=== PATIENT | male | born 1960 | race Caucasian/White ===

== ENCOUNTER 2016-09-26 11:54 | Inpatient (IN) | payer OTHER ==
[~2016-09-26] VITALS: Ht 190.5 cm; Wt 106.6 kg
--- NOTE | ~2016-09-26 | DS ---
PATIENT'S NAME: AMAN HOLCOMB [facility] AGE: 55 Y [address] ROOM: G3214 [place], [place] [address] LOCATION: [facility] ADMIT DATE: 09/26/2016 Discharge Summary DISCHARGE DATE: 09/29/2016 FAMILY PHYSICIAN: Thaddeus Valdes MD ATTENDING PHYSICIAN: Josue Laurent V ATTENDING PHYSICIAN ON THE DAY OF DISCHARGE: Dr. Du. DISCHARGE DIAGNOSES: 1. Intracranial hemorrhage, multiple. 2. Status post mechanical fall. 3. The patient is on long-term anticoagulation. 4. The patient is now hospice candidate. 5. History of alcohol dependence. DISCHARGE MEDICATIONS: 1. Tylenol 650 mg suppository q.4 h. p.r.n. for pain or fever over 100. 2. Atropine 1% ophthalmic drops 1 or 2 drops sublingually every 4 hours p.r.n. respiratory secretions. 3. Morphine sulfate 20 mg/mL 2.5-5 mg p.o. every hour p.r.n. pain or dyspnea. 4. Lorazepam suspension 0.5-2 mg p.o. sublingually q.2 h. p.r.n. anxiety. HOSPITAL COURSE: Please refer to the admitting H and P dictated by Dr. Laurent for more detailed outline of this patient's presentation. The patient was admitted and placed in the ICU. The family did not want aggressive treatment and Neurology was consulted for brain determination. A CT of the head was obtained on 09/27/2016, which showed extensive intracranial hemorrhage, which appears slightly more prominent involving the subarachnoid blood and scattered small areas of parenchymal hemorrhage. There was mass effect with midline shift to the left and effacement of the cortical sulci adjacent to the large left temporoparietal bleed. It was felt that the patient would have significant disability. The patient did show purposeful movement when Neurology consulted; however, given the dense disability that would remain, the patient's family ultimately decided on comfort cares after a family meeting on 09/27/2016. The patient underwent compassionate extubation on 09/27/2016 and was ultimately transferred to Medical/Surgical Unit to continue with comfort cares. It was the family's wishes to have the patient brought home with the help of hospice. Palliative Care was on-board with this case and also visited with the patient's sister who was passionate about the patient being discharged home. Arrangements were ultimately made for the patient to discharge home and come on Hospice Services on 09/29/2016. Ambulance transfer was requested and made and Hospice consult placed. Plans are for the hospice intake to happen on 09/29/2016 and comfort orders PATIENT'S NAME: AMAN HOLCOMB [facility] AGE: 55 Y [address] ROOM: [place] [address] LOCATION: [facility] ADMIT DATE: 09/26/2016 Discharge Summary DISCHARGE DATE: 09/29/2016 FAMILY PHYSICIAN: Thaddeus Valdes MD ATTENDING PHYSICIAN: Josue Laurent V were filled out and sent with the patient. This discharge took greater than 35 minutes and involved visiting with family particularly the patient's sister, coordinating with Palliative Care, and along with Hospice Services in the [facility], attempting to contact his primary care physician, and filling out appropriate paperwork for the ambulance transfer, hospice certification, and order set. MATI ESCOBEDO PA-C FOR MD OTILIO NAVARRO/modl /[id number] CC: Thaddeus Valdes MD d: 09/30/16 0208 t: 10/02/16 1822, DISCHARGE SUMMARY
--- NOTE | ~2016-09-26 | ER ---
PATIENT'S NAME: AMAN HOLCOMB [facility] AGE: 55 Y [address] ROOM: [address] [address] LOCATION: GICU ADMIT DATE: 09/26/2016 ER/Outpatient Report DISCHARGE DATE: FAMILY PHYSICIAN: Thaddeus Valdes MD ATTENDING PHYSICIAN: RUBY HER V Time of Arrival: 1154 hours. Time of Exam: 1200 hours. CHIEF COMPLAINT: Unresponsive. HISTORY OF PRESENT ILLNESS: The patient was transferred here from [facility]. He fell down a flight of steps and was found unresponsive at the bottom of the steps. He was evaluated at [facility], found to have multiple intraparenchymal, subdural, and subarachnoid hemorrhage of the left temporal lobe. He had right- sided scalp and periorbital hematomas. He was intubated there, transferred here for the care of Dr. Delacruz. They also did a CT of his cervical spine. It showed no acute spinal trauma injury. Lab work is available on his chart. Dr. Delacruz had talked with the sister, Taty Hernandez, regarding the patient prior to his arrival and the family did not necessarily want surgery done and felt that was his wishes. So, a plan of care was to admit the patient for comfort cares. ALLERGIES: NO KNOWN ALLERGIES. HOME MEDICATIONS: On his chart and were reviewed by me. PAST MEDICAL HISTORY: Includes coronary artery disease, hypertension, atrial fib, osteoarthritis, alcohol abuse. PAST SURGICAL HISTORY: He did have an ablation done for the atrial fibrillation. SOCIAL HISTORY: The patient lives in [place]. He does drink on a daily basis. REVIEW OF SYSTEMS: Difficult to evaluate at this time as the patient is intubated and unable to answer questions. PATIENT'S NAME: AMAN HOLCOMB [facility] AGE: 55 Y [address] ROOM: [address] [address] LOCATION: GICU ADMIT DATE: 09/26/2016 ER/Outpatient Report DISCHARGE DATE: FAMILY PHYSICIAN: Thaddeus Valdes MD ATTENDING PHYSICIAN: RUBY HER V PHYSICAL EXAMINATION: VITAL SIGNS: Weight 113.9 kg. Blood pressure is 118/81, pulse of 97, respirations 16 on the ventilator, temp of 98.1, O2 saturations 100% per ventilated settings. [place] Coma Scale was 3. GENERAL: The patient does not respond to verbal commands, does not over breathe the ventilator. HEENT: Pupils are constricted and nonreactive. LUNGS: Lung sounds are decreased in the bases, but clear throughout. HEART: Regular rate and rhythm. He does have bruising and swelling of the right periorbital area. Bruising of right elbow noted. No other obvious deformity noted. EMERGENCY DEPARTMENT COURSE: The patient has bilateral intraosseous IVs in place with normal saline running at a TKO rate with those. Family is here. Dr. Delacruz did come and see the patient and talked with the family regarding the plan of care. They were introduced to Dr. Her, who will be caring for the patient in the hospital. Marcy with [facility] [employer] is here and did talk with the family. X-ray of right elbow completed. No bony abnormaility noted. Patient reviewed with Dr. Rizvi. During time in ER, patient started over breathing the vent and having purposeful movement with left hand. Dr. Her was here in the ER and is aware of change. Dr. Delacruz notified of patient's change. Patient was given versed and fentanyl. Patient will be admitted to the ICU. IMPRESSION: Intracranial bleed due to a fall. PLAN: The patient to be admitted per the hospitalist, who will follow his care. MILTON PEREZ APRN FOR DO SHAHBAZ ARRIOLA/gita /[id number] d: 09/26/161920 t: 10/04/1603, OUTPATIENT REPORT
--- NOTE | ~2016-09-26 | CON ---
PATIENT'S NAME: AMAN REYNOSO [facility] AGE: 55 Y [address] ROOM: G[address]14 [place], [place] [address] LOCATION: [facility] [place] ADMIT DATE: 09/26/2016 Consultation DISCHARGE DATE: 09/29/2016 FAMILY PHYSICIAN: Thaddeus Valdes MD ATTENDING PHYSICIAN: Josue Laurent V DATE OF CONSULTATION: 09/29/2016 LOCATION: [facility] [place] [address]14. REASON FOR CONSULTATION: This is a palliative care referral for goals of care and assistance with getting home on hospice. HISTORY OF PRESENT ILLNESS: This is a 55-year-old male, who was found unresponsive by paramedics at the bottom of the stairs. He had not been seen for a couple of days and was found. He was taken to the hospital in [place]. He has a known history of atrial fibrillation, was on Pradaxa. CT of the head showed multiple intracerebral hemorrhages. He was transferred to [facility] for services by the neurosurgeon, Dr. Delacruz. The patient's family, his sister, Taty Reynoso, was contacted and had expressed that he had told them after being in the hospital last time, he did not want extraordinary measures done, and she has decided to follow his wishes, and he was extubated, and he is now on comfort cares. He also has a known history of alcoholism and other medical problems per his power of research attorney. Currently, the patient is somewhat restless, unresponsive, has irregular breathing. No grimacing or moaning noted. Seems to calm down when he hears his sister's voice. She thinks he recognizes her voice. The patient is currently on comfort cares. PAST MEDICAL HISTORY: Atrial fibrillation, on Pradaxa, and alcoholism. CURRENT MEDICATIONS: 1. Acetaminophen 650 mg every 4 hours per rectum and p.o. 2. Morphine 2 mg every hour p.r.n. pain or dyspnea. 3. IV glycopyrrolate 0.2 to 0.4 every 2 hours p.r.n. increased respiratory secretions. 4. Morphine sulfate/Roxanol 2 to 5 mg every 10 minutes IV push. 5. Midazolam 2 to 4 mg every 10 minutes IV. 6. Haloperidol 1 mg every hour IV or subcu. 7. Hyoscyamine 0.125 mg every 4 hours sublingual p.r.n. increased respiratory secretions. 8. Tylenol 1000 mg every 4 hours p.r.n. pain or temperature. PATIENT'S NAME: AMAN REYNOSO [facility] AGE: 55 Y [address] ROOM: G[address]14 [place], [place] [address] LOCATION: [facility] [place] ADMIT DATE: 09/26/2016 Consultation DISCHARGE DATE: 09/29/2016 FAMILY PHYSICIAN: Thaddeus Valdes MD ATTENDING PHYSICIAN: Josue Laurent V ALLERGIES: NO KNOWN ALLERGIES. FAMILY HISTORY: Mother had heart disease, of stroke at the age of 79. Father had renal cancer with mets to lung and at the age of 83. Siblings have no medical problems. He has one other sister, who lives in [place]. PAST SURGICAL HISTORY: Tonsillectomy; bilateral total knees; bilateral knee scopes; history of cardioversions; cardiac ablation on 06/2016, done in [place]; history of pinched nerve for 11 years, history of addiction, alcohol abuse, and depression. SOCIAL HISTORY: He had been living alone, not , was a disabled . Alcohol, history of abuse. Smoking history, chews tobacco 1 can every other day x30 years. REVIEW OF SYSTEMS: A 10-point review of systems is done and is negative except as mentioned in the HPI. PHYSICAL EXAMINATION: GENERAL: This is a 55-year-old male, in no acute distress. VITAL SIGNS: Temperature 98.1, pulse 94, respirations 24, blood pressure 158/111. He is 6 feet 3 inches, weighs 235 pounds with BMI of 29.7. GENERAL: Unresponsive. Does not respond to verbal stimuli. SKIN: Warm and dry. Color pale. Right eye is ecchymotic. HEENT: Head: Normocephalic, atraumatic. Right eye is swollen. Sclerae are nonicteric. Mouth is pink and dry. LYMPH: No cervical adenopathy or thyromegaly. RESPIRATORY: Coarse bilaterally breath sounds, irregular Eliseo-Arce at times, and then goes back to being regular. CARDIAC: S1 and S2 without murmurs or bruits. No lower extremity edema. ABDOMEN: Soft, nontender. Positive bowel tones. No hepatosplenomegaly. Unknown last bowel movement. NEURO: Unresponsive, not following commands. MUSCULOSKELETAL: Does move left arm to head at times. Right side is flaccid. Palliative performance scale is 10%, totally bed-bound, unable do any activity, total care, mouth care only, in coma. IMPRESSION: Dyspnea, restlessness, and increased respiratory secretions. PATIENT'S NAME: AMAN REYNOSO [facility] AGE: 55 Y [address] ROOM: [place] [address] LOCATION: [facility] [place] ADMIT DATE: 09/26/2016 Consultation DISCHARGE DATE: 09/29/2016 FAMILY PHYSICIAN: Thaddeus Valdes MD ATTENDING PHYSICIAN: Josue Laurent V PLAN: Met with sister, Taty. Discussed goals of care. She states that he has told her after last admission that he does not want life prolonging treatments. She knows with him lying on the floor for couple of days that outcome would not be good, and she wants to follow his wishes. She states that she also knows that he would want to be home at home with his dog, and she would like to get him home as soon as possible and have hospice from [place] help her. She can be the caregiver, and he has a girlfriend, who will help care giving tasks. CODE STATUS AND ADVANCED DIRECTIVES: The patient is currently do not resuscitate/do not intubate. No copy of advance directive is in place. Sister states she is the medical power of research attorney. GOALS: 1. To get the patient home as soon as possible. 2. Have patient as comfortable as possible especially for transport. 3. To get [facility] to help when transferred back home. 4. Did discuss that transfer would probably have to be by ambulance. Notified Martha from Care Management. She will arrange for transfer by ambulance. Also talked with NELA Andrade, for hospitalist services on the patient's family's wishes to get patient back home with hospice. Notified [facility]. They can accept patient anytime. We will continue to assist with the patient and family. RECOMMENDATIONS: 1. For restlessness, give a dose of morphine now. 2. Increased respiratory secretions, was giving atropine, recommended and given Levsin or Robinul for secretions every 4 hours until secretions are better controlled. Total time was 65 minutes for counseling and coordination of care. Thank you for allowing me to assist this patient and family. LETA QIU NP FOR MD CONNIE TONG/gita /[id number] d: 09/29/162107 t: 09/30/16 1453, CONSULTATION REPORT
--- NOTE | ~2016-09-26 | HP ---
PATIENT'S NAME: AMAN HOLCOMB [facility] AGE: 55 Y [address] ROOM: [place] [address] LOCATION: [facility] ADMIT DATE: 09/26/2016 History & Physical DISCHARGE DATE: FAMILY PHYSICIAN: Thaddeus Valdes MD ATTENDING PHYSICIAN: RUBY HER V DATE OF SERVICE: HISTORY OF PRESENT ILLNESS: This is a 55-year-old male who was found unresponsive by paramedics at the bottom of the stairs. The patient was intubated and transported to an outside hospital. He has a past medical history of atrial fibrillation, on Pradaxa amongst other past medical history further characterized below. The workup at the outside facility showed multiple intracerebral hemorrhages. The patient was accepted by Dr. Delacruz to [facility]. However, before the patient even got here as was conveyed to me, the patient's family had a conversation with Dr. Delacruz in which they expressed that they would not want any measures outside of comfort done for the patient. As such, the patient was transported to the emergency room at [facility] for an elective extubation and comfort measures. Upon getting there, I had a discussion with the family. The family told me that the patient has been having ongoing problems with alcoholism, other medical problems, and has been declining. He has made it clear to them that he would not want any period of dependence on others with diminished quality of life under any medical conditions. As such, they elected to make him comfort care based on the severity of his intracerebral injuries. Roque was called and we were initiating conversation about the donation process. However, at some point, the patient was noted to be somewhat purposeful and was overbreathing the vent. At this point, the family told me that "now we are not sure what we are doing" and extubation was canceled. At this point, the patient has been transferred to the intensive care unit on a ventilator. REVIEW OF SYSTEMS: Cannot be obtained as the patient is intubated and sedated. PAST MEDICAL HISTORY: As provided by the family significant for atrial fibrillation, on Pradaxa and alcoholism. CURRENT MEDICATIONS: Include, PATIENT'S NAME: AMAN HOLCOMB [facility] AGE: 55 Y [address] ROOM: [place] [address] LOCATION: [facility] ADMIT DATE: 09/26/2016 History & Physical DISCHARGE DATE: FAMILY PHYSICIAN: Thaddeus Valdes MD ATTENDING PHYSICIAN: RUBY HER V 1. Pradaxa. 2. Atorvastatin. 3. Indomethacin. 4. Lisinopril. 5. Pantoprazole. 6. Sildenafil. 7. Sotalol. SURGICAL HISTORY: Unknown due to altered mental status. SOCIAL HISTORY: Significant for ongoing alcohol abuse as conveyed by his family. PHYSICAL EXAMINATION: VITAL SIGNS: At this point, his blood pressure is 119/74, heart rate is 105, saturating 99% on 40% FiO2, and the patient is breathing at 14 which is with a vent setting, but he does have a brief event that pulls the rate down. GENERAL APPEARANCE: A well-developed, well-nourished, elderly male, with right hemiparesis. Remainder of neurological exam cannot be conducted. ENT: Exam reveals no stridor. LYMPHATIC: Exam shows no cervical lymphadenopathy. Endocrine: Exam shows no thyromegaly. LUNGS: Clear to auscultation. HEART: Rate is regular and tachycardic. ABDOMEN: Soft, nontender, nondistended. : Exam reveals no costovertebral angle tenderness. VASCULAR: Exam reveals 2+ pedal pulses. MUSCULOSKELETAL: Exam is unremarkable. SKIN: Reveals a large hematoma around his right orbit. PSYCHIATRIC: Exam cannot be conducted. LABORATORY DATA: Review of studies from the outside facility significant for alcohol level of 0.19. EKG shows sinus tachycardia. ASSESSMENT AND PLAN: This is a critically ill, 55-year-old male with, 1. Mechanical fall and intracerebral hemorrhage. At this point, I will re- engage the family about goals of care as it is clear that the patient does not have a prognosis for functional recovery, which would fulfill his quality of life requirements as conveyed to me by his family. 2. Respiratory failure. We will continue the patient on the ventilator. 3. Atrial fibrillation. At this point, he is in sinus tachycardia. We will continue him on Sotalol. Obviously, anticoagulation will be withheld. PATIENT'S NAME: AMAN HOLCOMB [facility] AGE: 55 Y [address] ROOM: [address] [address] LOCATION: [facility] ADMIT DATE: 09/26/2016 History & Physical DISCHARGE DATE: FAMILY PHYSICIAN: Thaddeus Valdes MD ATTENDING PHYSICIAN: RUBY HER V 4. Hypertension, that is well controlled. Additional management depends on my discussion with the family. Total critical care time dedicated to this patient is 60 minutes. MD XIAO RANKIN/augustinal /[id number] D: [id number] T: [id number] HISTORY & PHYSICAL
[~2016-09-26 11:54] MED LIST: INDOCIN50 MG PO; LIPITOR40 MG PO; LOPRESSOR25 MG PO; PRADAXA150 MG PO; PRINIVIL OR ZES10 MG PO; PROTONIX40 MG PO; VIAGRA100 MG PO
[2016-09-29] MEDS ORDERED: TYLENOL650 MG R (12:11)
[2016-09-29] MEDS ORDERED: ATROPINE 0.01%-10 ML SL (12:14)
[2016-09-29] MEDS ORDERED: "\\\"PREP SPRAY\\\"-TIN4 OZ" (12:14)
[2016-09-29] MEDS ORDERED: MORPHINE 20MG/ML PO (12:21)
[2016-09-29] MEDS ORDERED: LORAZEPAM2 MG/1 M2 SL (12:23)
[2016-09-29] MEDS ORDERED: MORPHINE 2MG/2 MG/ML IV (12:30)
== END 2016-09-29 12:52 | disposition disaster alternative care site (69) | DRG 82 ==
LOC: GACC 11:54 → GICU 14:49 → GMSU 14:49 → GICU 14:49 → GMSU 09-27 19:55
PROVIDERS: ADMIT Internal Medicine
DX: S06.30 Unspecified focal traumatic brain injury (principal); J96.90 Respiratory failure, unspecified, unspecified whether with hypoxia or hypercapnia; S06.6X6A Traumatic subarachnoid hemorrhage with loss of consciousness greater than 24 hours without return to pre-existing conscious level with patient surviving, initial encounter; I48.91 Unspecified atrial fibrillation; I10 Essential (primary) hypertension; S06.5X6A Traumatic subdural hemorrhage with loss of consciousness greater than 24 hours without return to pre-existing conscious level with patient surviving, initial encounter; Z51.5 Encounter for palliative care; F10.20 Alcohol dependence, uncomplicated; I25.10 Atherosclerotic heart disease of native coronary artery without angina pectoris; R40.2432 Glasgow coma scale score 3-8, at arrival to emergency department; F32.9 Major depressive disorder, single episode, unspecified; W10.9XXA Fall (on) (from) unspecified stairs and steps, initial encounter; Z66 Do not resuscitate; Z78.1 Physical restraint status; Z79.01 Long term (current) use of anticoagulants
CPT/HCPCS: C9113; J0131; J0690; J1630; J2060; J2250; J2270; J3010; J7030; J7040; J7050; J7060

== ENCOUNTER → 2016-09-29 | Outpatient (CLI) | payer OTHER ==
[~2016-09-29] MED LIST changes: +"\\\"PREP SPRAY\\\"-TIN4 OZ"; +ATROPINE 0.01%-10 ML SL; +LORAZEPAM2 MG/1 M2 SL; +MORPHINE 20MG/ML PO; +MORPHINE 2MG/2 MG/ML IV; +TYLENOL650 MG R
== END | disposition disaster alternative care site (69) ==
LOC: GAMB 12:50
DX: S06.5X0A Traumatic subdural hemorrhage without loss of consciousness, initial encounter (principal); W19.XXXA Unspecified fall, initial encounter
CPT/HCPCS: A0425; A0428